=== PATIENT | male | born 1940 | race Caucasian/White ===

== ENCOUNTER 2022-07-03 15:57 | Emergency (ER) | payer OTHER, MEDICARE, MEDICAID ==
[~2022-07-03] VITALS: Ht 175.3 cm; Wt 86.4 kg
[~2022-07-03 15:57] MED LIST: AMIO200T61 PO; CARV3.122 PO; DIGO125T PO; FURO-150 PO; ISOS60TA71 PO; LISI5TAB22 PO; SIMV-342 PO
[2022-07-03] MEDS ORDERED: normal saline 1000ML IV soln IVB ONE (16:10)
[2022-07-03 17:10] LABS: ALANINE AMINOTRANSFERASE 12 U/L (12-78); ALBUMIN 3.5 G/DL (3.4-5.0); ALKALINE PHOSPHATASE 63 IU/L (46-116); ANION GAP 9 (8-16); ASPARTATE AMINO TRANSFERASE 13 U/L (10-37); BILIRUBIN,TOTAL 0.4 MG/DL (0.1-1.0); BLOOD UREA NITROGEN 20 MG/DL (7-18); CALCIUM 9.2 MG/DL (8.5-10.1); CHLORIDE 104 MMOL/L (99-107); CREATININE 1.43 MG/DL (0.60-1.10); GLUCOSE 109 MG/DL (70-104); POTASSIUM 4.3 MMOL/L (3.5-5.1); SODIUM 139 MMOL/L (135-145); TOTAL CARBON DIOXIDE 26.4 MMOL/L (24-32); TOTAL PROTEIN 6.9 G/DL (6.4-8.2); eGFR 48 ML/MIN
[2022-07-03] MEDS ORDERED: metoprolol tartrate 50mg tablet PO ONE (17:35)
[2022-07-03 17:50] LABS: BASOPHILS # (AUTO) 0.1 X10'3 (0-0.2); BASOPHILS % (AUTO) 1.1 % (0-1); EOSINOPHILS # (AUTO) 0.1 X10'3 (0-0.9); EOSINOPHILS % (AUTO) 1.9 % (0-6); HEMATOCRIT 41.9 % (42.0-52.0); LYMPHOCYTES # (AUTO) 1.1 X10'3 (1.1-4.8); LYMPHOCYTES % (AUTO) 14.4 % (21-51); MEAN CORPUSCULAR HEMOGLOBIN 29.5 PG (27.0-31.0); MEAN CORPUSCULAR HGB CONC 33.5 g/dL (33.0-36.5); MEAN CORPUSCULAR VOLUME 87.9 FL (78-98); MEAN PLATELET VOLUME 8.1 FL (7.4-10.4); MONOCYTES # (AUTO) 0.8 X10'3 (0-0.9); MONOCYTES % (AUTO) 11.1 % (2-12); NEUTROPHILS # (AUTO) 5.4 X10'3 (1.8-7.7); NEUTROPHILS % (AUTO) 71.5 % (42-75); PLATELET COUNT 226 X10'3 (140-440); RED BLOOD COUNT 4.76 X10'6 (4.70-6.10); RED CELL DISTRIBUTION WIDTH 14.8 % (11.5-14.5); WHITE BLOOD COUNT 7.5 X10'3 (4.5-11.0)
[2022-07-03 18:02] LABS: CLARITY,URINE CLEAR (Clear); COLOR,URINE YELLOW (Yellow); GLUCOSE, URINE NEGATIVE (Neg); KETONES,URINE NEGATIVE (Neg); LEUKOCYTE ESTERASE ,URINE NEGATIVE (Neg); NITRITES, URINE NEGATIVE (Neg); OCCULT BLOOD,URINE NEGATIVE (Neg); PROTEIN,URINE NEGATIVE (Neg); UROBILINOGEN,URINE 0.2 E.U/dL (0.2-1.0)
[2022-07-03 18:06] LABS: UA COLLECTION TYPE VOIDED
--- NOTE | 2022-07-03 18:09 | NUR ---
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
[2022-07-03] MEDS ORDERED: APIX5TAB3 PO (19:04)
[2022-07-03] MEDS ORDERED: apixaban 5mg tablet PO STA (19:05)
[2022-07-03 19:24] VITALS: BP 146/99
== END 2022-07-03 19:27 | disposition home or self-care (01) ==
LOC: ER 15:57
DX: I48.0 Paroxysmal atrial fibrillation (principal); I50.23 Acute on chronic systolic (congestive) heart failure; G89.29 Other chronic pain; Z90.49 Acquired absence of other specified parts of digestive tract
CPT/HCPCS: 36415; 70450; 71045; 80053; 81003; 83880; 84484; 85025; 93005; 96360; 99285; J7030

== ENCOUNTER → 2022-11-27 | Day surgery (SDC) | payer OTHER ==
[2022-11-23 11:53] LABS: BASOPHILS % (AUTO) 0.5 % (0-1); EOSINOPHILS # (AUTO) 0.2 X10'3 (0-0.9); EOSINOPHILS % (AUTO) 2.8 % (0-6); HEMATOCRIT 41.2 % (42.0-52.0); HEMOGLOBIN 13.5 g/dl (14.0-17.9); LYMPHOCYTES # (AUTO) 0.9 X10'3 (1.1-4.8); LYMPHOCYTES % (AUTO) 17.3 % (21-51); MEAN CORPUSCULAR HEMOGLOBIN 28.8 PG (27.0-31.0); MEAN CORPUSCULAR HGB CONC 32.8 g/dL (33.0-36.5); MEAN CORPUSCULAR VOLUME 87.7 FL (78-98); MEAN PLATELET VOLUME 8.5 FL (7.4-10.4); MONOCYTES # (AUTO) 0.4 X10'3 (0-0.9); MONOCYTES % (AUTO) 8.2 % (2-12); NEUTROPHILS # (AUTO) 3.9 X10'3 (1.8-7.7); NEUTROPHILS % (AUTO) 71.2 % (42-75); PLATELET COUNT 216 X10'3 (140-440); RED BLOOD COUNT 4.69 X10'6 (4.70-6.10); RED CELL DISTRIBUTION WIDTH 16.2 % (11.5-14.5); WHITE BLOOD COUNT 5.5 X10'3 (4.5-11.0)
[2022-11-23 11:58] LABS: ALBUMIN 3.4 G/DL (3.4-5.0); ANION GAP 6 (8-16); BLOOD UREA NITROGEN 24 MG/DL (7-18); BUN/CREATININE RATIO 16.9 (10.0-20.0); CHLORIDE 106 MMOL/L (99-107); CREATININE 1.42 MG/DL (0.60-1.10); GLUCOSE 89 MG/DL (70-104); POTASSIUM 4.5 MMOL/L (3.5-5.1); SODIUM 138 MMOL/L (135-145); TOTAL CARBON DIOXIDE 26.2 MMOL/L (24-32); eGFR 48 ML/MIN
[2022-11-23 12:00] LABS: APTT 32 SECONDS (22-32)
[~2022-11-27] VITALS: Ht 175.3 cm; Wt 85.8 kg
[~2022-11-27] MED LIST changes: +APIX5TAB3 PO; +MIDAZolam 1mg/ml 10ml vial IV ONE; +fentaNYL/PF 50MCG/1 ML 2ML syringe IV ONE; +normal saline 1000ml 1,000 ML IV SCH
== END | disposition home or self-care (01) ==
LOC: SSTAY O 10:09
PROVIDERS: ATTEND Student in an Organized Health Care Education/Training Program
DX: I48.91 Unspecified atrial fibrillation (principal); I42.9 Cardiomyopathy, unspecified; J44.9 Chronic obstructive pulmonary disease, unspecified; I50.9 Heart failure, unspecified; I25.10 Atherosclerotic heart disease of native coronary artery without angina pectoris; N18.9 Chronic kidney disease, unspecified; Z88.6 Allergy status to analgesic agent; Z79.899 Other long term (current) drug therapy; Z98.890 Other specified postprocedural states; Z53.8 Procedure and treatment not carried out for other reasons
CPT/HCPCS: 36415; 80048; 85025; 85610; 85730; A4620; J7030

== ENCOUNTER 2024-01-29 14:51 | Emergency (ER) | payer OTHER, MEDICARE, MEDICAID ==
[~2024-01-29] VITALS: Ht 175.3 cm; Wt 85.9 kg
[~2024-01-29 14:51] MED LIST changes: +AMI200T PO; -AMIO200T61 PO; -DIGO125T PO; -FURO-150 PO; -ISOS60TA71 PO; +LISI20TA28 PO; -LISI5TAB22 PO; -MIDAZolam 1mg/ml 10ml vial IV ONE; -fentaNYL/PF 50MCG/1 ML 2ML syringe IV ONE; -normal saline 1000ml 1,000 ML IV SCH
[2024-01-29 16:53] VITALS: TEMP 97.8
[2024-01-29 17:27] LABS: BASOPHILS # (AUTO) 0.1 X10'3 (0-0.2); BASOPHILS % (AUTO) 1.5 % (0-1); EOSINOPHILS # (AUTO) 0.2 X10'3 (0-0.9); EOSINOPHILS % (AUTO) 3.5 % (0-6); HEMATOCRIT 39.1 % (42.0-52.0); HEMOGLOBIN 12.8 g/dl (14.0-17.9); LYMPHOCYTES # (AUTO) 1.1 X10'3 (1.1-4.8); LYMPHOCYTES % (AUTO) 23.4 % (21-51); MEAN CORPUSCULAR HEMOGLOBIN 29.8 PG (27.0-31.0); MEAN CORPUSCULAR HGB CONC 32.7 g/dL (33.0-36.5); MEAN PLATELET VOLUME 8.3 FL (7.4-10.4); MONOCYTES # (AUTO) 0.6 X10'3 (0-0.9); MONOCYTES % (AUTO) 12.3 % (2-12); NEUTROPHILS # (AUTO) 2.8 X10'3 (1.8-7.7); NEUTROPHILS % (AUTO) 59.3 % (42-75); PLATELET COUNT 203 X10'3 (140-440); RED CELL DISTRIBUTION WIDTH 16.7 % (11.5-14.5); WHITE BLOOD COUNT 4.8 X10'3 (4.5-11.0)
[2024-01-29 17:58] LABS: ALBUMIN 3.4 G/DL (3.4-5.0); ANION GAP 4 (8-16); BLOOD UREA NITROGEN 19 MG/DL (7-18); BUN/CREATININE RATIO 12.9 (10.0-20.0); CALCIUM 8.3 MG/DL (8.5-10.1); CHLORIDE 105 MMOL/L (99-107); CREATININE 1.47 MG/DL (0.60-1.10); GLUCOSE 90 MG/DL (70-104); POTASSIUM 4.8 MMOL/L (3.5-5.1); PRO BRAIN NATRIURETIC PEPTIDE 1058 PG/ML (0-450); SODIUM 135 MMOL/L (135-145); TOTAL CARBON DIOXIDE 25.8 MMOL/L (24-32); eCRCL 39 ML/MIN; eGFR 46 ML/MIN
[2024-01-29] MEDS: acetaminophen 325mg tablet PO ONE (18:39)
[2024-01-29] MEDS: HYDROcodone/acetaminophen 5mg/325mg tablet PO ONE (18:44)
[2024-01-29] MEDS ORDERED: HYDR-3965 PO (19:41)
[2024-01-29 19:44] VITALS: BP 127/98; PULSE 50; RESP 12; O2SAT 92
== END 2024-01-29 19:55 | disposition home or self-care (01) ==
LOC: ER 14:51
DX: M25.511 Pain in right shoulder (principal); I48.91 Unspecified atrial fibrillation; M19.90 Unspecified osteoarthritis, unspecified site; G89.29 Other chronic pain; Z90.49 Acquired absence of other specified parts of digestive tract; Z88.8 Allergy status to other drugs, medicaments and biological substances; Z79.899 Other long term (current) drug therapy; W05.0XXA Fall from non-moving wheelchair, initial encounter; Y93.89 Activity, other specified; Y92.89 Other specified places as the place of occurrence of the external cause; Y99.8 Other external cause status
CPT/HCPCS: 36415; 71045; 73030; 80048; 83880; 84484; 85025; 93005; 99285; A4565; A4620

== ENCOUNTER 2024-05-15 13:48 | Emergency (ER) | payer OTHER, MEDICARE, MEDICAID ==
[~2024-05-15] VITALS: Ht 175.3 cm; Wt 81.8 kg
[2024-05-15 13:54] VITALS: TEMP 97.9
[2024-05-15] MEDS ORDERED: MELO-100 PO (15:51)
[2024-05-15] MEDS ORDERED: HYDR-3965 PO (15:51)
[2024-05-15] MEDS: HYDROcodone/acetaminophen 5mg/325mg tablet PO ONE (16:39)
[2024-05-15 16:50] VITALS: BP 126/79; PULSE 66; RESP 16; O2SAT 97
== END 2024-05-15 16:53 | disposition home or self-care (01) ==
LOC: ER 13:49
DX: S32.019A Unspecified fracture of first lumbar vertebra, initial encounter for closed fracture (principal); I48.91 Unspecified atrial fibrillation; M19.90 Unspecified osteoarthritis, unspecified site; Z88.5 Allergy status to narcotic agent; Z79.899 Other long term (current) drug therapy; Z79.2 Long term (current) use of antibiotics; Z98.890 Other specified postprocedural states; W19.XXXA Unspecified fall, initial encounter; Y93.89 Activity, other specified; Y92.89 Other specified places as the place of occurrence of the external cause; Y99.8 Other external cause status
CPT/HCPCS: 74176; 99284